=== PATIENT | female | born 1955 ===

== ENCOUNTER 2019-05-19 14:15 | Inpatient (IN) | payer OTHER ==
[~2019-05-19] VITALS: Ht 157.5 cm; Wt 63.5 kg
== END 2019-05-27 16:08 | disposition home or self-care (01) | DRG 735 ==
LOC: O/R 14:15 → SURH 05-26 18:39 → O/R 05-26 23:30 → SURH 05-27 16:08
PROVIDERS: ADMIT Obstetrics & Gynecology Gynecologic Oncology
PROC: 0UT94ZZ Resection of Uterus, Percutaneous Endoscopic Approach (ICD-10-PCS; 2019-05-26)
PROC: 0UT74ZZ Resection of Bilateral Fallopian Tubes, Percutaneous Endoscopic Approach (ICD-10-PCS; 2019-05-26)
PROC: 0UT24ZZ Resection of Bilateral Ovaries, Percutaneous Endoscopic Approach (ICD-10-PCS; 2019-05-26)
PROC: 07TC4ZZ Resection of Pelvis Lymphatic, Percutaneous Endoscopic Approach (ICD-10-PCS; principal; 2019-05-26 23:30)
DX: C54.1 Malignant neoplasm of endometrium (principal)